=== PATIENT | female | born 1945 | race Caucasian/White ===

== ENCOUNTER 2018-06-08 11:15 | Emergency (ER) | payer OTHER, MEDICARE ==
[~2018-06-08] VITALS: Ht 147.3 cm; Wt 56.2 kg
--- NOTE | 2018-06-08 12:18 | ED GENERAL ADULT ---
History of Present Illness General Chief Complaint: General Adult Stated Complaint: SENT IN BY PRIMARY MD FOR NIGHT SWEATS Source: patient Exam Limitations: no limitations Vital Signs & Intake/Output Vital Signs & Intake/Output Vital Signs Date Time Temp Pulse Resp B/P B/P Pulse O2 O2 Flow FiO2 Mean Ox Delivery Rate 06/08 1343 98.1 67 18 164/78 97 Room Air 06/08 1159 Room Air 06/08 1119 97.8 74 18 163/65 96 Room Air Allergies Coded Allergies: ciprofloxacin (From CIPRO) (RASH 01/24/16) clindamycin (RASH 01/24/16) codeine (NAUSEA, HEAVY SEDATION 06/08/18) penicillin G (RASH 01/24/16) Reconcile Medications Acetaminophen 500 MG TABLET 2 TAB PO TID PAIN (Reported) Amlodipine Besylate 5 MG TABLET 1 TAB PO DAILY BP (Reported) Cholecalciferol (Vitamin D3) (Vitamin D) 1,000 UNIT TABLET 3 TAB PO DAILY SUPPLEMENT (Reported) Cyanocobalamin (Vitamin B-12) 1,000 MCG TABLET 1 TAB PO DAILY SUPPLEMENT ( Reported) Fluticasone-Salmeterol (Advair 100-50 Diskus) 100 MCG-50 MCG/DOSE BLST.W.DEV 1 PUF INH BID ASTHMA (Reported) Levothyroxine Sodium 50 MCG TABLET 1 TAB PO DAILY THYROID (Reported) Linaclotide (Linzess) 145 MCG CAPSULE 1 CAP PO DAILY GI (Reported) Magnesium Oxide (Magnesium) 500 MG CAPSULE 1 CAP PO DAILY SUPPLEMENT ( Reported) Pregabalin (Lyrica) 50 MG CAPSULE 1 CAP PO DAILY FIBROMYALGIA (Reported) Rosuvastatin Calcium (Crestor) 10 MG TABLET 1 TAB PO DAILY CHOLESTEROL ( Reported) Triage Note: 72 YO FEMALE TO TRIAGE FOR EVAL OF NIGHT SWEATS. STATES FOR A FEW WEEKS SHE WAS HAVING CHILLS BUT DENIES ANY OTHER S/S OR FEVERS. STATES THE LAST 2 NIGHTS SHE HAS WOKEN UP "SOAKED" IN THE MIDDLE OF THE NIGHT. REPORTS SHE CALLED HER DR SHIRA LANDRY WHO TOLD HER TO COME IN FOR EVAL OF ?UTI. PT REPORTS SHE IS INCONTINENT. Triage Nurses Notes Reviewed? yes HPI: Patient presents for evaluation of chills over the past month. Patient denies actual fever or other cold symptoms or signs of infection. These chills have been intermittent and resolved spontaneously. A few days ago patient got up to urinate in the middle of the night and she felt sweaty. She denies any other associated symptoms. 2 nights ago she experienced an episode of low back pain bilaterally with wrapping around to the abdomen with a feeling of abdominal bloating. That seemed to resolve spontaneously as well but later that evening she experienced an episode of drenching sweats. She had a similar episode last night prompting her to contact her primary care doctor this morning. The office staff instructed her to report to the emergency department. Patient denies chest pain or shortness of breath rashes or dysuria. Past History Travel History Traveled to [place] past 21 day No Medical History Any Pertinent Medical History? see below for history Neurological: NONE EENT: NONE Cardiovascular: hypertension, hyperlipidemia Respiratory: asthma Gastrointestinal: NONE Hepatic: NONE Renal: NONE Musculoskeletal: NONE Psychiatric: NONE Endocrine: hypothyroidism Blood Disorders: NONE Cancer(s): NONE DATA MANAGEMENT MANAGER/Reproductive: NONE Surgical History Surgical History: non-contributory Psychosocial History What is your primary language [place] Tobacco Use: Never used Family History Hx Contributory? No Review of Systems Review of Systems Constitutional: Reports: no symptoms. EENTM: Reports: no symptoms. Respiratory: Reports: no symptoms. Cardiovascular: Reports: no symptoms. GI: Reports: no symptoms. Genitourinary: Reports: no symptoms. Musculoskeletal: Reports: no symptoms. Skin: Reports: see HPI. Neurological/Psychological: Reports: no symptoms. Hematologic/Endocrine: Reports: no symptoms. Immunologic/Allergic: Reports: no symptoms. All Other Systems: Reviewed and Negative Physical Exam Physical Exam General Appearance: SEE BELOW Comments: Gen.: Well-nourished, well-developed, no acute respiratory distress. Head: Normocephalic, atraumatic. Eyes: Normal inspection bilaterally Ears: Normal inspection bilaterally Nose: Normal inspection Throat/mouth : Moist mucosa Neck: Supple, full range of motion, no goiter Heart: Regular rate and rhythm, no murmurs rubs or gallops Lungs: Clear to auscultation bilaterally with normal air entry Chest: Nontender Back: Normal range of motion Abdomen: Soft, nontender, nondistended, normal bowel sounds Extremities: Normal range of motion grossly, equal radial pulses, no cyanosis clubbing or edema Neurologic: Cranial nerves grossly intact, speech is clear Skin: warm and dry, no apparent rashes Psychiatric: Calm, cooperative, no apparent delusions or hallucinations Lymphatic: No cervical or supraclavicular lymphadenopathy Core Measures ACS in differential dx? No CVA/TIA Diagnosis: No Sepsis Present: No Sepsis Focused Exam Completed? No Progress Differential Diagnoses I considered the following diagnoses in my evaluation of the patient: Occult infection, hematologic disease Plan of Care: Orders Procedure Date/time Status THYROID STIMULATING HORMONE 06/08 114 Complete MAGNESIUM 06/08 114 Complete FREE T4 06/08 114 Complete URINALYSIS 06/08 112 Complete TROPONIN LEVEL 06/08 112 Complete COMPREHENSIVE METABOLIC PANEL 06/08 112 Complete CBC WITHOUT DIFFERENTIAL 06/08 112 Complete EKG 06/08 112 Active Laboratory Tests 06/08/18 1212: Urine Color YEL, Urine Clarity HAZY H, Urine pH 6.5, Ur Specific [place] 1.010, Urine Protein NEG, Urine Ketones NEG, Urine Nitrite NEG, Urine Bilirubin NEG, Urine Urobilinogen 0.2, Ur Leukocyte Esterase TRACE H, Ur Microscopic SEDIMENT EXAMINED, Urine RBC RARE, Urine WBC 3-5 H, Ur Epithelial Cells FEW, Urine Bacteria FEW H, Urine Hemoglobin NEG, Urine Glucose NEG 06/08/18 1140: Anion Gap 12, Estimated GFR > 60, BUN/Creatinine Ratio 23.8, Glucose 101 H, Calcium 9.7, Magnesium 2.0, Total Bilirubin 0.6, AST 47 H, ALT 70 H, Alkaline Phosphatase 140 H, Troponin I < 0.01, Total Protein 6.7, Albumin 3.7, Globulin 3.0, Albumin/Globulin Ratio 1.2, TSH 1.190, Free T4 1.47, CBC w Diff NO MAN DIFF REQ, RBC 3.65 L, MCV 95.8, MCH 31.9 H, MCHC 33.3, RDW 14.3, MPV 8.8, Gran % 81.5 H, Lymphocytes % 9.4 L, Monocytes % 8.0, Eosinophils % 1.0, Basophils % 0.1, Absolute Granulocytes 5.6, Absolute Lymphocytes 0.7 L, Absolute Monocytes 0.5, Absolute Eosinophils 0.1, Absolute Basophils 0 06/08/18 1121: Magnesium Cancelled, TSH Cancelled, Free T4 Cancelled CXR Impression: PATIENT: LYDIA BURNS PRESENT AGE: 72 PATIENT ACCOUNT NO: [id number] : 46 LOCATION: [facility] ORDERING PHYSICIAN: Karan Snyder MD SERVICE DATE: 06/08/18 EXAM TYPE: RAD - XRY-CHEST XRAY, TWO VIEWS EXAMINATION: XR CHEST CLINICAL INFORMATION: Night sweats. Presumptive diagnosis of infiltrate, effusion, lymphadenopathy. COMPARISON: None TECHNIQUE: 2 views of the chest were obtained. FINDINGS: The cardiomediastinal silhouette is within normal limits in size. Lungs bilaterally are symmetrically hyperinflated, consistent with obstructive lung disease. Lobulation of the right hemidiaphragm is seen. No focal consolidation, effusion or pneumothorax is seen. Diffuse osteopenia and multilevel moderate vertebral spondylosis is seen throughout the mid and lower thoracic spine. IMPRESSION: Obstructive lung disease. No acute cardiopulmonary process. DICTATED BY: Linda Curry MD DATE /TIME DICTATED:06/08/181307 DAIRY BAR MANAGER:JOE DATE/TIME TRANSCRIBED: 06/08/181307 CONFIDENTIAL, DO NOT COPY WITHOUT APPROPRIATE AUTHORIZATION. < Electronically signed in Other Vendor System> SIGNED BY: Linda Curry MD 06/08/18 1314 Initial ED EKG: none Comments: I considered the following: Lymphoma/malignancy, tuberculosis, medication side effect, occult infection Departure Departure Disposition: HOME OR SELF CARE Condition: Stable Clinical Impression Primary Impression: Night sweats Referrals: Wandy Madrid MD (PCP/Family) Additional Instructions: Follow-up with your primary care physician for reevaluation this week. The cause of your night sweats is unclear. Please return if any concerns or sudden worsening. Please note that there might be incidental findings in your evaluation that are unrelated to the current emergency department visit. Please notify your primary care doctor about this emergency department visit in order to obtain and review all of the testing performed so that these incidental findings can be monitored as needed. If you had an x-ray performed, please understand that some fractures or other findings may not be seen on the initial set of x-rays. If your symptoms persist you might need a repeat set of x-rays to check for such a fracture. If you had a laceration evaluated, please understand that foreign bodies such as glass or wood may not be visible to the naked eye or on plain x-rays. If the wound becomes red, swollen, increasingly more painful or if there is any drainage from the wound, please have it reevaluated by a physician for the possibility of a retained foreign body. If you're unable to follow up as outlined in the discharge instructions please return to the emergency department. Thank you for choosing the [facility] Emergency Department for your care. It was a pleasure to serve you today. Karan Snyder M.D. [facility] Departure Forms: Customer Survey General Discharge Information Critical Care Note Critical Care Note Critical Care Time: non-applicable
[2018-06-08 12:21] LABS: ABSOLUTE BASOPHIL COUNT 0 /CUMM (0.0-0.2); ABSOLUTE EOSINOPHIL COUNT 0.1 /CUMM (0.0-0.7); ABSOLUTE GRANULOCYTE CT 5.6 /CUMM (1.4-6.5); ABSOLUTE LYMPH COUNT 0.7 /CUMM (1.2-3.4); ABSOLUTE MONOCYTE COUNT 0.5 /CUMM (0.10-0.60); BASOPHIL % 0.1 % (0.0-2.0); GRANULOCYTE % 81.5 % (42.2-75.2); MEAN CORPUSCULAR HGB 31.9 PG (27.0-31.0); MEAN CORPUSCULAR HGB CONC 33.3 G/DL (33.0-37.0); MEAN CORPUSCULAR VOLUME 95.8 FL (81.0-99.0); MEAN PLATELET VOLUME 8.8 FL (7.4-10.4); PLATELET COUNT 243 /CUMM (130-400); RBC DISTRIBUTION WIDTH 14.3 % (11.5-14.5); RED BLOOD CELL CT 3.65 /CUMM (4.20-5.40); WHITE BLOOD CELL COUNT 6.9 /CUMM (4.8-10.8)
--- NOTE | 2018-06-08 13:14 | RADIOLOGY REPORT ---
EXAMINATION: XR CHEST CLINICAL INFORMATION: Night sweats. Presumptive diagnosis of infiltrate, effusion, lymphadenopathy. COMPARISON: None TECHNIQUE: 2 views of the chest were obtained. FINDINGS: The cardiomediastinal silhouette is within normal limits in size. Lungs bilaterally are symmetrically hyperinflated, consistent with obstructive lung disease. Lobulation of the right hemidiaphragm is seen. No focal consolidation, effusion or pneumothorax is seen. Diffuse osteopenia and multilevel moderate vertebral spondylosis is seen throughout the mid and lower thoracic spine. IMPRESSION: Obstructive lung disease. No acute cardiopulmonary process.
[2018-06-08] MEDS ORDERED: LINZESS145 MC1 PO (13:22)
[2018-06-08] MEDS ORDERED: LYRICA50 M1 PO (13:22)
[2018-06-08] MEDS ORDERED: CRESTOR10 M1 PO (13:22)
[2018-06-08] MEDS ORDERED: ADVAIR 100-501 EACH INH (13:22)
[2018-06-08] MEDS ORDERED: LEVOTHYROXINE50 MCG PO (13:22)
[2018-06-08] MEDS ORDERED: VITAMIN B-121000 MC3 PO (13:23)
[2018-06-08] MEDS ORDERED: AMLODIPINE BESYL5 M1 PO (13:23)
[2018-06-08] MEDS ORDERED: MAGNESIUM500 M2 PO (13:23)
[2018-06-08] MEDS ORDERED: VITAMIN D1000 UNIT PO (13:23)
[2018-06-08] MEDS ORDERED: ACETAMINOPHEN500 M4 PO (13:24)
[2018-06-08 13:43] VITALS: BP 164/78
== END 2018-06-08 14:40 ==
LOC: ERH 11:15
PROVIDERS: Physician Assistant
DX: R61 Generalized hyperhidrosis (principal)
CPT/HCPCS: 86618; 71046; 81001; 93005; 93010